=== PATIENT | female | born 1995 | race Two or more races ===

== ENCOUNTER 2018-06-13 13:14 | Outpatient (CLI) | payer MEDICAID ==
[2018-06-13 14:34] LABS: ADD UMIC YES; UR ASCORBIC ACID NEGATIVE (NEGATIVE); UR BACTERIA FEW /HPF (NONE SEEN); UR BILIRUBIN (Dip) NEGATIVE (NEGATIVE); UR BLOOD (Dip) NEGATIVE (NEGATIVE); UR CLARITY SLIGHTLY CLOUDY (CLEAR); UR COLOR YELLOW (YELLOW); UR GLUCOSE (Dip) 2+ mg/dL (NEGATIVE); UR KETONES (Dip) NEGATIVE (NEGATIVE); UR LEUKOCYTE ESTERASE (Dip) 1+ Leu/ul (NEGATIVE); UR NITRITE (Dip) NEGATIVE (NEGATIVE); UR RBC 3 /HPF (0-5); UR SPECIFIC GRAVITY (Dip) 1.012 (1.003-1.030); UR SQUAMOUS EPITHELIAL CELL FEW /HPF (FEW); UR TOTAL PROTEIN (Dip) NEGATIVE (NEGATIVE); UR UROBILINOGEN (Dip) NEGATIVE (NEGATIVE); UR WBC 3 /HPF (0-5)
== END 2018-06-13 17:36 | disposition home or self-care (01) ==
LOC: OBT 13:14 → L-D 13:14 → OBT 17:36
DX: O23.43 Unspecified infection of urinary tract in pregnancy, third trimester (principal); Z3A.32 32 weeks gestation of pregnancy
CPT/HCPCS: 76815; 76817; 76818; 81001; 87086

== ENCOUNTER 2018-07-29 03:15 | Inpatient (IN) | payer MEDICAID ==
[2018-07-29 03:43] LABS: ADD MAN DIFF? NO
[2018-07-29] MEDS: AMPICILLIN 2 GM/NS (PMX) 100 ML IV (03:51)
[2018-07-29] MEDS: LACTATED RINGER'S 1,000 ML IV* ×2 (03:51→13:34)
[2018-07-29] MEDS ORDERED: BUTORPHANOL 2 MG INJ IV (04:00)
[2018-07-29] MEDS ORDERED: OXYTOCIN 30 UNITS/LR 500 ML IV ×3 (04:00→15:00)
[2018-07-29] MEDS ORDERED: MISOPROSTOL 200 MCG TAB PR ×2 (04:00→15:00)
[2018-07-29] MEDS ORDERED: CARBOPROST 250 MCG INJ IM ×2 (04:00→15:00)
[2018-07-29 04:05] LABS: WHITE BLOOD COUNT 8.7 10^3/ul (4.8-10.8)
[2018-07-29 04:05] LABS: BASOPHILS % 0.2 % (0.0-2.0); EOSINOPHILS % 0.5 % (0.0-7.0); HEMATOCRIT 35.8 % (37.0-47.0); HEMOGLOBIN 11.9 g/dl (12.0-16.0); LYMPHOCYTES % 22.5 % (15.0-51.0); MEAN CORPUSCULAR HEMOGLOBIN 28.8 pg (29.0-33.0); MEAN CORPUSCULAR HGB CONC 33.2 g/dl (32.0-37.0); MEAN CORPUSCULAR VOLUME 86.7 fl (82.0-101.0); MEAN PLATELET VOLUME 10.4 fl (7.4-10.4); MONOCYTE # 0.6 10^3/ul (0.3-0.9); MONOCYTES % 6.9 % (0.0-11.0); NEUTROPHILS % 69.6 % (39.0-77.0); PLATELET COUNT 165 10^3/UL (140-415); RED BLOOD COUNT 4.13 10^6/ul (4.20-5.40); RED CELL DISTRIBUTION WIDTH 14.1 % (11.5-14.5)
[2018-07-29 04:06] LABS: INR 0.92; PROTIME 12.4 Sec (11.9-14.9)
[2018-07-29 04:08] LABS: PARTIAL THROMBOPLASTIN TIME 23.6 Sec (25.0-35.0)
[2018-07-29] MEDS: LACTATED RINGER'S 1,000 ML IV (04:13)
[2018-07-29] MEDS ORDERED: FENTAnyl 2MCG/ML-ROPIV 0.2% 100 ML (04:21)
[2018-07-29] MEDS ORDERED: NALOXONE (0.4 MG/ML) INJ IV (04:30)
[2018-07-29] MEDS: FENTAnyl 2MCG/ML-ROPIV 0.2% 100 ML BAG EPI (04:39)
[2018-07-29 05:09] LABS: RUPTURE FETAL MEMBRANES POSITIVE (NEGATIVE)
[2018-07-29] MEDS: OXYTOCIN 30 UNITS/LR 500 ML IV ×3 (06:13→18:21)
[2018-07-29 06:37] LABS: HEPATITIS B SURFACE ANTIGEN NEGATIVE (NEGATIVE)
[2018-07-29 07:06] LABS: AMPHETAMINE/METHAMPHETAMINE Negative (NEGATIVE); BARBITURATES Negative (NEGATIVE); BENZODIAZEPINES Negative (NEGATIVE); CANNABINOIDS Negative (NEGATIVE); COCAINE Negative (NEGATIVE); OPIATES Negative (NEGATIVE)
[2018-07-29] MEDS: AMPICILLIN 1 GM/NS (PMX) 50 ML IV (08:03)
[2018-07-29] MEDS: METHYLERGONOVINE 0.2 MG INJ IM (14:32)
[2018-07-29] MEDS: LIDOCAINE 1% (MPF) 30 ML INJ INJ (14:37)
[2018-07-29] MEDS ORDERED: NACL 0.9% 3 ML SYG IV (15:00)
[2018-07-29] MEDS ORDERED: METHYLERGONOVINE 0.2 MG INJ IM (15:00)
[2018-07-29] MEDS ORDERED: OXYCODONE/ASPIRIN (4.88/325) TAB PO (15:00)
[2018-07-29] MEDS: IBUPROFEN 600 MG TAB PO ×3 (17:05→23:38)
[2018-07-29] MEDS: WITCH HAZEL/GLYCERIN PAD PR (18:19)
[2018-07-29] MEDS: OXYCODONE/ASPIRIN (4.88/325) TAB PO ×2 (18:19→23:05)
[2018-07-29] MEDS: DIBUCAINE 1% 30 GM OINT PR (18:20)
[2018-07-29 19:39] LABS: RAPID PLASMA REAGIN NONREACTIVE (NR)
[2018-07-30] MEDS: IBUPROFEN 600 MG TAB PO ×3 (05:45→17:58)
[2018-07-30 08:57] LABS: ADD MAN DIFF? NO
[2018-07-30 09:05] LABS: BASOPHILS % 0.2 % (0.0-2.0); EOSINOPHILS % 0.2 % (0.0-7.0); HEMATOCRIT 30.8 % (37.0-47.0); HEMOGLOBIN 10.2 g/dl (12.0-16.0); LYMPHOCYTES # 2.1 10^3/ul (0.8-2.9); LYMPHOCYTES % 15.3 % (15.0-51.0); MEAN CORPUSCULAR HEMOGLOBIN 28.8 pg (29.0-33.0); MEAN CORPUSCULAR HGB CONC 33.1 g/dl (32.0-37.0); MEAN PLATELET VOLUME 10.9 fl (7.4-10.4); MONOCYTES % 7.3 % (0.0-11.0); NEUTROPHIL # 10.6 10^3/ul (1.6-7.5); NEUTROPHILS % 76.5 % (39.0-77.0); PLATELET COUNT 137 10^3/UL (140-415); RED BLOOD COUNT 3.54 10^6/ul (4.20-5.40); RED CELL DISTRIBUTION WIDTH 14.2 % (11.5-14.5)
[2018-07-30 09:05] LABS: WHITE BLOOD COUNT 13.9 10^3/ul (4.8-10.8)
[2018-07-30] MEDS: OXYCODONE/ASPIRIN (4.88/325) TAB PO (21:35)
[2018-07-30] MEDS: LANOLIN 7 GM TUBE TOP (21:35)
[2018-07-31] MEDS: IBUPROFEN 600 MG TAB PO ×4 (00:47→18:21)
[2018-07-31] MEDS: FERROUS SULFATE (EC) 325 MG TAB PO ×2 (09:34→21:19)
[2018-07-31] MEDS: WITCH HAZEL/GLYCERIN PAD PR (21:19)
[2018-07-31] MEDS: BENZOCAINE 20% 56 ML SPRAY TOP (21:19)
[2018-08-01] MEDS: IBUPROFEN 600 MG TAB PO ×3 (00:16→11:29)
[2018-08-01] MEDS: FERROUS SULFATE (EC) 325 MG TAB PO (09:11)
[2018-08-01] MEDS: LANOLIN 7 GM TUBE TOP (09:11)
[2018-08-01] MEDS: WITCH HAZEL/GLYCERIN PAD PR (09:12)
[2018-08-01] MEDS: BENZOCAINE 20% 56 ML SPRAY TOP (09:12)
[2018-08-01] MEDS: MEASLES,MUMPS,RUBELLA VACCINE INJ SC* (12:24)
== END 2018-08-01 14:25 | disposition home or self-care (01) | DRG 775 ==
LOC: OBT 03:15 → L-D 03:15 → OBT 03:20 → L-D 03:20 → PP1 17:39
PROVIDERS: Obstetrics & Gynecology
PROC: 10E0XZZ Delivery of Products of Conception, External Approach (ICD-10-PCS; principal; 2018-07-29)
PROC: 0UQGXZZ Repair Vagina, External Approach (ICD-10-PCS; 2018-07-29)
PROC: 3E033VJ Introduction of Other Hormone into Peripheral Vein, Percutaneous Approach (ICD-10-PCS; 2018-07-29)
DX: O71.4 Obstetric high vaginal laceration alone (principal); Z3A.39 39 weeks gestation of pregnancy; Z37.0 Single live birth
CPT/HCPCS: 62319; 76815; 76818; 80307; 84112; 85025; 85610; 85730; 86592; 86850; 86900; 86901; 87340